=== PATIENT | female | born 1990 | race Caucasian/White ===

== ENCOUNTER → 2018-02-11 | Outpatient (CLI) | payer OTHER | END | disposition home or self-care (01) | LOC: C.LAB1850 08:19 | PROVIDERS: ATTEND Physician Assistant | DX: Z00.00 Encounter for general adult medical examination without abnormal findings (principal) ==

== ENCOUNTER 2019-03-22 05:10 | Inpatient (IN) ==
[2019-03-22] MEDS ORDERED: OXYTOCIN 30 UNITS/500 ML BAG IV PRN ×3 (06:47→18:50)
--- NOTE | 2019-03-22 06:54 | History & Physical Report ---
Date of Service March 22, 2019 Assessment & Plan (1) Supervision of normal first : Spontaneous labor. Admit to L&D, IV fluids, EFM/toco. Labs. Patient plans for epidural. OK to get up and move prior to epidural. Clear liquids only. Anticipate . History of Present Illness Chief Complaint: spontaneous labor Primary Care Provider: NO PCP 28yo @ 38 5/7 presents with contractions every few minutes and leaking of clear fluid. Scant vaginal bleeding. + movement. complicated by cardiac echogenic focus. Panorama was low risk. She believes she started leaking fluid around 3am today. She states she was checked in the office last and was 1-2cm dilated. 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 Beliefs That Will Affect Care: None marital status: Current Living Situation: Spouse Other Information That Helps Us Care for You: No Feels Safe at Home: Yes Safety Concerns: Feels Safe At This Time Smoking Status: Never smoker Hx Alcohol Use: No Hx Substance Use: No Review of Systems All systems reviewed & are unremarkable except as noted in HPI & below Physical Exam Physical Exam: Gen: AAOx3 NAD CV: RRR S1S2 L: CTAB Abd: soft, gravid, NTTP Ext: no edema Sterile spec exam: +pooling, +valsalva, +nitrizine, +ferning SVE: 3/80/-1 FHT Cat 1 [place] Q 2-3 min Results & Data Vital Signs (Past 12 Hours) Vital Signs Temp Pulse Resp BP 03/22/19 05:28 36.7 C 18 03/22/19 05:21 77 126/84
[2019-03-22 07:15] LABS: Hematocrit (blood only) 34.1 % (37-47); Hemoglobin 11.8 g/dL (12.0-16.0); Mean Corpuscular Hemoglobin 30.6 pg (25-34); Mean Corpuscular Volume 88.6 fL (80-100); Mean Platelet Volume 12.3 fL (7.4-10.4); Platelet Count 179 K/uL (130-400); RDW Coefficient of Variation 12.9 % (11.5-14.5); RDW Standard Deviation 41.5 fL (36.4-46.3); Red Blood Count 3.85 M/uL (4.2-5.4); White Blood Count 12.87 K/uL (4.8-10.8)
[2019-03-22 07:23] LABS: Mean Corpuscular Hgb Conc 34.6 g/dL (32-36)
[2019-03-22] MEDS: LACTATED RINGER'S 1,000 ML IV PRN ×4 (07:56→16:53)
[2019-03-22] MEDS ORDERED: ePHEDrine sulfate 50 MG/ML AMP ONE (08:00)
[2019-03-22] MEDS ORDERED: BUPIVACAINE 0.25% 30 ML VIAL ONE ×2 (08:00→16:48)
[2019-03-22] MEDS ORDERED: fentaNYL 2MCG/ML ROPIV 1.25MG/ML 100 ML BAG EPI ONE (08:01)
[2019-03-22] MEDS ORDERED: fentaNYL citrate 100 MCG/2 ML VIAL ONE (08:01)
[2019-03-22] MEDS ORDERED: NALOXONE HCL 0.4 MG/1 ML VIAL/CARP IV PRN (08:27)
[2019-03-22] MEDS ORDERED: ONDANSETRON INJ 2 MG/ML 2 ML VIAL IV PRN (08:27)
[2019-03-22] MEDS ORDERED: ePHEDrine sulfate 50 MG/ML AMP IV PRN (08:27)
[2019-03-22] MEDS ORDERED: NALOXONE HCL 1 MG in SODIUM CHLORIDE 0.9% 1000ML 1,000 ML IV PRN (08:27)
[2019-03-22] MEDS ORDERED: DiphenhydrAMINE HCL 50 MG/ML VIAL IV PRN (08:27)
[2019-03-22] MEDS ORDERED: fentaNYL 2MCG/ML ROPIV 1.25MG/ML 100 ML BAG EPI PRN (08:27)
[2019-03-22] MEDS ORDERED: NALBUPHINE HCL INJ 10 MG/ML AMP IV PRN (08:27)
--- NOTE | 2019-03-22 08:30 | Anesthesiology Consultation ---
Date of Service March 22, 2019 Assessment & Plan Chart Review Chart Review: Patient NOT seen in Pre Admission Testing and Acceptable Risk for Labor Epidural Consults Requested none ASA ASA2 Proposed Anesthesia Anesthesia Type: Labor Epidural and CSE Risk / Benefits Reviewed With: PT / POA / Parent / Guardian, Accepts Plan and Informed Consent Obtained History Height/Weight Height: 5 ft 4 in Weight: 68.946 kg Allergies Allergy/AdvReac Type Severity Reaction Status Date / Time No Known Drug Allergies Allergy Verified 03/18/19 10:38 Medications Home Medications Medication Instructions Recorded Confirmed Last Taken 1 tab PO DAILY 02/08/19 03/22/19 03/21/19 vitamin,calcium,kuozmgih-kavi-mmstg acid tablet docusate sodium [Colace] 100 mg PO DAILY 03/22/19 03/22/19 03/21/19 ferrous sulfate [iron] 325 mg PO 3XWK 03/22/19 03/22/19 03/20/19 Active Medications Generic Name Dose Route Start Last Admin Trade Name Freq PRN Reason Stop Dose Admin Lactated Ringer's 1,000 mls @ 125 mls/hr 03/22/19 06:47 03/22/19 07:56 Lr IV 03/24/19 06:46 999 mls/hr .Q8H PRN Administration L&D Protocol Protocol NPO Date Last Intake of Fluids: 03/22/19 Time Last Intake of Fluids: 07:30 Date Last Intake of Solids: 03/21/19 Time Last Intake of Solids: 18:30 Past Medical History Medical History cardiac echogenic focus Abnormal chromosomal and genetic finding on screening mother History of kidney stones History of varicella Exercise / Class Metabolic Activity II 4-5 Yardwork/Stairs/Walk up hill Past Family History Family History Mother Hypertension Breast cancer Past Surgical History Surgical History S/P tonsillectomy S/P wisdom tooth extraction Past Anesthesia History No Hx of Anesthesia Complications and No Family Hx of Anesthesia Complications History of PONV No Hx of PONV and No Hx of Motion Sickness Social History Smoking Status: Never smoker Hx Alcohol Use: No Hx Substance Use: No substance use type: does not use Review of Systems no chest pain or sob Physical Exam Vital Signs Last Vital Signs Temp 36.4 C L 03/22/19 07:20 Pulse 78 03/22/19 08:26 Resp 16 03/22/19 07:20 BP 111/72 03/22/19 07:11 Pulse Ox 100 03/22/19 08:26 ENMT Mouth: no TMJ abnormality Thyromental Distance: > or= 3.5 Finger Breadths Mallampati Class: II Neck normal visual inspection Respiratory normal respiratory effort Auscultation: lungs clear to auscultation bilaterally Cardiovascular Rate/Rhythm: regular rate and regular rhythm Musculoskeletal Spine: normal cervical ROM Neurologic moves all extremities Psychiatric Orientation: alert and oriented x 3 Testing Laboratory Results 03/22/19 07:05
--- NOTE | 2019-03-22 08:51 | Labor Progress Brief Note ---
Date of Service March 22, 2019 Subjective Reason For Note: Routine Evaluation Late entry Pt aware i am assuming care. she is requesting epidural. she notes painful ctx. Assessment & Plan (1) Supervision of normal first : (2) 38 weeks gestation of : requests epidural, aware if ctx decrease, will add pit. no significant cx change. fhts categ 1 Physical Exam Constitutional: WD/WN, vitals as above Psychiatric: A+Ox3, euthymic affect Genitourinary: Manual OB Exam: + cervical dilation (3), + cervical effacement 90% and + station -2 OB Exam Monitor Tracing: + external FHT monitor used (140 mod variability, reactive), + external uterine monitor used (q2-3), + c ategory I and + normal FHT variability Results & Data Vital Signs (Past 12 Hours) Vital Signs Temp Pulse Resp BP Pulse Ox 03/22/19 08:47 69 121/82 03/22/19 08:46 73 99 03/22/19 08:45 67 126/87 03/22/19 08:43 67 123/80 03/22/19 08:41 77 95 03/22/19 08:36 68 100 03/22/19 08:35 84 93 03/22/19 08:31 69 100 03/22/19 08:26 78 100 03/22/19 08:25 74 93 03/22/19 08:21 67 100 03/22/19 08:16 73 99 03/22/19 08:11 66 98 03/22/19 08:06 87 100 03/22/19 08:05 71 93 03/22/19 08:01 78 97 03/22/19 07:56 69 95 03/22/19 07:20 97.5 F L 16 03/22/19 07:11 64 111/72 03/22/19 05:28 98.1 F 18 03/22/19 05:21 77 126/84
--- NOTE | 2019-03-22 13:16 | Labor Progress Brief Note ---
Date of Service March 22, 2019 Subjective Reason For Note: Routine Evaluation Patient is comfortable. no complaints. Assessment & Plan (1) 38 weeks gestation of : (2) Supervision of normal first : good cx change. fhts reassuring. categ 1. c/w pit. Physical Exam Constitutional: WD/WN, vitals as above Genitourinary: Manual OB Exam: + cervical dilation 6 cm, + cervical effacement 100% and + station 0 OB Exam Monitor Tracing: + external FHT monitor used (135 mod variability), + external uterine monitor used (q2-3), + category I and + normal FHT variability pit at 9 Results & Data Vital Signs (Past 12 Hours) Vital Signs Temp Pulse Resp BP Pulse Ox 03/22/19 13:14 78 89 L 03/22/19 13:11 80 98 03/22/19 13:06 72 99 03/22/19 13:04 68 124/83 03/22/19 13:01 70 97 03/22/19 12:56 71 98 03/22/19 12:51 79 99 03/22/19 12:48 76 132/86 03/22/19 12:46 77 98 03/22/19 12:42 81 94 03/22/19 12:41 80 98 03/22/19 12:36 73 98 03/22/19 12:33 68 124/78 03/22/19 12:31 75 100 03/22/19 12:26 67 98 03/22/19 12:21 66 98 03/22/19 12:18 66 115/76 03/22/19 12:16 61 98 03/22/19 12:11 67 98 03/22/19 12:06 65 98 03/22/19 12:03 64 111/75 03/22/19 12:01 72 98 03/22/19 11:56 68 98 03/22/19 11:51 62 98 03/22/19 11:48 66 109/76 03/22/19 11:46 73 98 03/22/19 11:41 78 98 03/22/19 11:36 93 H 98 03/22/19 11:32 85 104/67 03/22/19 11:31 74 97 03/22/19 11:26 79 97 03/22/19 11:21 76 98 03/22/19 11:19 18 03/22/19 11:18 68 103/70 03/22/19 11:16 76 98 03/22/19 11:11 75 98 03/22/19 11:06 73 97 03/22/19 11:03 68 100/64 03/22/19 11:01 71 97 03/22/19 10:56 67 98 03/22/19 10:52 99.0 F 20 03/22/19 10:51 72 98 03/22/19 10:47 72 103/68 03/22/19 10:46 71 99 03/22/19 10:41 75 98 03/22/19 10:36 73 99 03/22/19 10:33 73 107/67 03/22/19 10:31 71 99 03/22/19 10:26 66 99 03/22/19 10:21 86 99 03/22/19 10:18 68 106/69 03/22/19 10:16 70 99 03/22/19 10:11 74 99 03/22/19 10:06 71 99 03/22/19 10:03 70 120/75 03/22/19 10:01 68 99 03/22/19 09:56 70 100 03/22/19 09:51 77 99 03/22/19 09:48 64 109/71 03/22/19 09:46 64 99 03/22/19 09:41 64 99 03/22/19 09:36 64 100 03/22/19 09:32 66 18 110/76 03/22/19 09:31 65 99 03/22/19 09:26 69 99 03/22/19 09:21 65 98 03/22/19 09:17 67 108/70 03/22/19 09:16 67 99 03/22/19 09:15 69 110/71 03/22/19 09:13 69 18 107/68 03/22/19 09:11 68 108/68 98 03/22/19 09:09 69 108/66 03/22/19 09:07 69 109/64 03/22/19 09:06 70 98 03/22/19 09:05 71 18 110/68 03/22/19 09:03 71 109/68 03/22/19 09:01 98.1 F 75 16 110/69 98 03/22/19 09:00 98.1 F 18 03/22/19 08:59 75 111/72 03/22/19 08:58 18 03/22/19 08:57 71 113/72 03/22/19 08:56 74 98 03/22/19 08:55 73 18 114/71 03/22/19 08:53 78 18 114/76 03/22/19 08:51 80 115/78 98 03/22/19 08:49 71 18 113/80 03/22/19 08:47 69 121/82 03/22/19 08:46 73 99 03/22/19 08:45 67 126/87 03/22/19 08:43 67 123/80 03/22/19 08:41 77 95 03/22/19 08:36 68 100 03/22/19 08:35 84 93 03/22/19 08:31 69 100 03/22/19 08:26 78 100 03/22/19 08:25 74 93 03/22/19 08:21 67 100 03/22/19 08:16 73 99 03/22/19 08:11 66 98 03/22/19 08:06 87 100 03/22/19 08:05 71 93 03/22/19 08:01 78 97 03/22/19 07:56 69 95 03/22/19 07:20 97.5 F L 16 03/22/19 07:11 64 111/72 03/22/19 05:28 98.1 F 18 03/22/19 05:21 77 126/84
[2019-03-22] MEDS ORDERED: Nursing to Pharmacy Communication ONE (14:11)
--- NOTE | 2019-03-22 15:20 | Labor Progress Brief Note ---
Date of Service March 22, 2019 Subjective Reason For Note: Routine Evaluation comfortable. no complaints. Assessment & Plan (1) 38 weeks gestation of : good progress in labor, c/w pit. categ 1 fhts. begin 2nd stage soon. Physical Exam Constitutional: WD/WN, vitals as above Genitourinary: Manual OB Exam: + cervical dilation 9 cm, + cervical effacement 100% and + station (to +1) 0 OB Exam Monitor Tracing: + external FHT monitor used (135 mod variability, reactive. ), + external uterine monitor used (q2), + category I and + normal FHT variability pitocin Results & Data Vital Signs (Past 12 Hours) Vital Signs Temp Pulse Resp BP Pulse Ox 03/22/19 15:16 75 100 03/22/19 15:11 67 100 03/22/19 15:06 74 100 03/22/19 15:05 98.4 F 16 03/22/19 15:03 65 121/83 03/22/19 15:01 68 100 03/22/19 14:56 64 98 03/22/19 14:51 64 100 03/22/19 14:48 75 124/86 92 03/22/19 14:46 79 94 03/22/19 14:41 70 97 03/22/19 14:36 92 H 100 03/22/19 14:33 73 108/70 03/22/19 14:31 69 98 03/22/19 14:26 67 97 03/22/19 14:21 66 97 03/22/19 14:19 73 108/66 03/22/19 14:16 71 97 03/22/19 14:11 68 97 03/22/19 14:06 76 97 03/22/19 14:04 74 18 110/68 03/22/19 14:01 77 98 03/22/19 13:56 69 97 03/22/19 13:51 70 98 03/22/19 13:49 67 18 107/70 03/22/19 13:46 70 98 03/22/19 13:41 70 97 03/22/19 13:36 70 98 03/22/19 13:32 73 110/72 03/22/19 13:31 68 98 03/22/19 13:26 70 99 03/22/19 13:21 68 99 03/22/19 13:18 72 18 109/68 03/22/19 13:16 82 98 03/22/19 13:14 78 89 L 03/22/19 13:11 80 98 03/22/19 13:06 72 99 03/22/19 13:04 68 124/83 03/22/19 13:01 70 97 03/22/19 13:00 98.8 F 18 03/22/19 12:56 71 98 03/22/19 12:51 79 99 03/22/19 12:48 76 132/86 03/22/19 12:46 77 98 03/22/19 12:42 81 94 03/22/19 12:41 80 98 03/22/19 12:36 73 98 03/22/19 12:33 68 18 124/78 03/22/19 12:31 75 100 03/22/19 12:26 67 98 03/22/19 12:21 66 98 03/22/19 12:18 66 115/76 03/22/19 12:16 61 98 03/22/19 12:11 67 98 03/22/19 12:06 65 98 03/22/19 12:03 64 111/75 03/22/19 12:01 72 98 03/22/19 11:56 68 98 03/22/19 11:51 62 98 03/22/19 11:48 66 109/76 03/22/19 11:46 73 98 03/22/19 11:41 78 98 03/22/19 11:36 93 H 98 03/22/19 11:32 85 104/67 03/22/19 11:31 74 97 03/22/19 11:26 79 97 03/22/19 11:21 76 98 03/22/19 11:19 18 03/22/19 11:18 68 103/70 03/22/19 11:16 76 98 03/22/19 11:11 75 98 03/22/19 11:06 73 97 03/22/19 11:03 68 100/64 03/22/19 11:01 71 97 03/22/19 10:56 67 98 03/22/19 10:52 99.0 F 20 03/22/19 10:51 72 98 03/22/19 10:47 72 103/68 03/22/19 10:46 71 99 03/22/19 10:41 75 98 03/22/19 10:36 73 99 03/22/19 10:33 73 107/67 03/22/19 10:31 71 99 03/22/19 10:26 66 99 03/22/19 10:21 86 99 03/22/19 10:18 68 106/69 03/22/19 10:16 70 99 03/22/19 10:11 74 99 03/22/19 10:06 71 99 03/22/19 10:03 70 120/75 03/22/19 10:01 68 99 03/22/19 09:56 70 100 03/22/19 09:51 77 99 03/22/19 09:48 64 109/71 03/22/19 09:46 64 99 03/22/19 09:41 64 99 03/22/19 09:36 64 100 03/22/19 09:32 66 18 110/76 03/22/19 09:31 65 99 03/22/19 09:26 69 99 03/22/19 09:21 65 98 03/22/19 09:17 67 108/70 03/22/19 09:16 67 99 03/22/19 09:15 69 110/71 03/22/19 09:13 69 18 107/68 03/22/19 09:11 68 108/68 98 03/22/19 09:09 69 108/66 03/22/19 09:07 69 109/64 03/22/19 09:06 70 98 03/22/19 09:05 71 18 110/68 03/22/19 09:03 71 109/68 03/22/19 09:01 98.1 F 75 16 110/69 98 03/22/19 09:00 98.1 F 18 03/22/19 08:59 75 111/72 03/22/19 08:58 18 03/22/19 08:57 71 113/72 03/22/19 08:56 74 98 03/22/19 08:55 73 18 114/71 03/22/19 08:53 78 18 114/76 03/22/19 08:51 80 115/78 98 03/22/19 08:49 71 18 113/80 03/22/19 08:47 69 121/82 03/22/19 08:46 73 99 03/22/19 08:45 67 126/87 03/22/19 08:43 67 123/80 03/22/19 08:41 77 95 03/22/19 08:36 68 100 03/22/19 08:35 84 93 03/22/19 08:31 69 100 03/22/19 08:26 78 100 03/22/19 08:25 74 93 03/22/19 08:21 67 100 03/22/19 08:16 73 99 03/22/19 08:11 66 98 03/22/19 08:06 87 100 03/22/19 08:05 71 93 03/22/19 08:01 78 97 03/22/19 07:56 69 95 03/22/19 07:20 97.5 F L 16 03/22/19 07:11 64 111/72 03/22/19 05:28 98.1 F 18 03/22/19 05:21 77 126/84
--- NOTE | 2019-03-22 17:15 | Labor Progress Brief Note ---
Date of Service March 22, 2019 Subjective Reason For Note: Routine Evaluation does have pressure to push Assessment & Plan (1) 38 weeks gestation of : (2) SROM (spontaneous rupture of membranes): begin 2nd stage. fhts categ 1. Physical Exam Constitutional: WD/WN, vitals as above Genitourinary: Manual OB Exam: + cervical dilation 10 cm, + cervical effacement 100% and + station + 2 OB Exam Monitor Tracing: + external FHT monitor used (130 mod variability), + external uterine monitor used (q2), + c ategory I and + normal FHT variability Results & Data Vital Signs (Past 12 Hours) Vital Signs Temp Pulse Resp BP Pulse Ox 03/22/19 17:12 98 H 99 03/22/19 17:07 78 100 03/22/19 17:03 71 112/63 88 L 03/22/19 17:02 78 99 03/22/19 16:57 73 100 03/22/19 16:54 81 88 L 03/22/19 16:52 89 100 03/22/19 16:49 76 106/56 L 03/22/19 16:47 89 97 03/22/19 16:44 99.5 F 22 03/22/19 16:43 81 88 L 03/22/19 16:42 80 100 03/22/19 16:37 75 99 03/22/19 16:33 75 105/66 03/22/19 16:32 79 84 L 03/22/19 16:31 73 99 03/22/19 16:26 77 99 03/22/19 16:21 64 100 03/22/19 16:19 62 130/69 03/22/19 16:17 76 87 L 03/22/19 16:16 69 97 03/22/19 16:11 96 H 99 03/22/19 16:10 101 H 94 03/22/19 16:06 93 H 100 03/22/19 16:04 79 108/69 03/22/19 16:01 76 98 03/22/19 15:56 73 100 03/22/19 15:51 73 100 03/22/19 15:48 68 18 119/78 03/22/19 15:46 83 97 03/22/19 15:41 76 100 03/22/19 15:38 78 90 03/22/19 15:36 74 100 03/22/19 15:32 77 113/77 03/22/19 15:31 69 99 03/22/19 15:29 72 93 03/22/19 15:26 69 100 03/22/19 15:24 72 91 03/22/19 15:21 72 97 03/22/19 15:18 69 119/81 91 03/22/19 15:16 75 100 03/22/19 15:11 67 100 03/22/19 15:06 74 100 03/22/19 15:05 98.4 F 16 03/22/19 15:03 98.1 F 65 18 121/83 03/22/19 15:01 68 100 03/22/19 14:56 64 98 03/22/19 14:51 64 100 03/22/19 14:48 75 124/86 92 03/22/19 14:46 79 94 03/22/19 14:41 70 97 03/22/19 14:36 92 H 100 03/22/19 14:33 73 108/70 03/22/19 14:31 69 98 03/22/19 14:26 67 97 03/22/19 14:21 66 97 03/22/19 14:19 73 108/66 03/22/19 14:16 71 97 03/22/19 14:11 68 97 03/22/19 14:06 76 97 03/22/19 14:04 74 18 110/68 03/22/19 14:01 77 98 03/22/19 13:56 69 97 03/22/19 13:51 70 98 03/22/19 13:49 67 18 107/70 03/22/19 13:46 70 98 03/22/19 13:41 70 97 03/22/19 13:36 70 98 03/22/19 13:32 73 110/72 03/22/19 13:31 68 98 03/22/19 13:26 70 99 03/22/19 13:21 68 99 03/22/19 13:18 72 18 109/68 03/22/19 13:16 82 98 03/22/19 13:14 78 89 L 03/22/19 13:11 80 98 03/22/19 13:06 72 99 03/22/19 13:04 68 124/83 03/22/19 13:01 70 97 03/22/19 13:00 98.8 F 18 03/22/19 12:56 71 98 03/22/19 12:51 79 99 03/22/19 12:48 76 132/86 03/22/19 12:46 77 98 03/22/19 12:42 81 94 03/22/19 12:41 80 98 03/22/19 12:36 73 98 03/22/19 12:33 68 18 124/78 03/22/19 12:31 75 100 03/22/19 12:26 67 98 03/22/19 12:21 66 98 03/22/19 12:18 66 115/76 03/22/19 12:16 61 98 03/22/19 12:11 67 98 03/22/19 12:06 65 98 03/22/19 12:03 64 111/75 03/22/19 12:01 72 98 03/22/19 11:56 68 98 03/22/19 11:51 62 98 03/22/19 11:48 66 109/76 03/22/19 11:46 73 98 03/22/19 11:41 78 98 03/22/19 11:36 93 H 98 03/22/19 11:32 85 104/67 03/22/19 11:31 74 97 03/22/19 11:26 79 97 03/22/19 11:21 76 98 03/22/19 11:19 18 03/22/19 11:18 68 103/70 03/22/19 11:16 76 98 03/22/19 11:11 75 98 03/22/19 11:06 73 97 03/22/19 11:03 68 100/64 03/22/19 11:01 71 97 03/22/19 10:56 67 98 03/22/19 10:52 99.0 F 20 03/22/19 10:51 72 98 03/22/19 10:47 72 103/68 03/22/19 10:46 71 99 03/22/19 10:41 75 98 03/22/19 10:36 73 99 03/22/19 10:33 73 107/67 03/22/19 10:31 71 99 03/22/19 10:26 66 99 03/22/19 10:21 86 99 03/22/19 10:18 68 106/69 03/22/19 10:16 70 99 03/22/19 10:11 74 99 03/22/19 10:06 71 99 03/22/19 10:03 70 120/75 03/22/19 10:01 68 99 03/22/19 09:56 70 100 03/22/19 09:51 77 99 03/22/19 09:48 64 109/71 03/22/19 09:46 64 99 03/22/19 09:41 64 99 03/22/19 09:36 64 100 03/22/19 09:32 66 18 110/76 03/22/19 09:31 65 99 03/22/19 09:26 69 99 03/22/19 09:21 65 98 03/22/19 09:17 67 108/70 03/22/19 09:16 67 99 03/22/19 09:15 69 110/71 03/22/19 09:13 69 18 107/68 03/22/19 09:11 68 108/68 98 03/22/19 09:09 69 108/66 03/22/19 09:07 69 109/64 03/22/19 09:06 70 98 03/22/19 09:05 71 18 110/68 03/22/19 09:03 71 109/68 03/22/19 09:01 98.1 F 75 16 110/69 98 03/22/19 09:00 98.1 F 18 03/22/19 08:59 75 111/72 03/22/19 08:58 18 03/22/19 08:57 71 113/72 03/22/19 08:56 74 98 03/22/19 08:55 73 18 114/71 03/22/19 08:53 78 18 114/76 03/22/19 08:51 80 115/78 98 03/22/19 08:49 71 18 113/80 03/22/19 08:47 69 121/82 03/22/19 08:46 73 99 03/22/19 08:45 67 126/87 03/22/19 08:43 67 123/80 03/22/19 08:41 77 95 03/22/19 08:36 68 100 03/22/19 08:35 84 93 03/22/19 08:31 69 100 03/22/19 08:26 78 100 03/22/19 08:25 74 93 03/22/19 08:21 67 100 03/22/19 08:16 73 99 03/22/19 08:11 66 98 03/22/19 08:06 87 100 03/22/19 08:05 71 93 03/22/19 08:01 78 97 03/22/19 07:56 69 95 03/22/19 07:20 97.5 F L 16 03/22/19 07:11 64 111/72 03/22/19 05:28 98.1 F 18 03/22/19 05:21 77 126/84
[2019-03-22] MEDS ORDERED: SUPERCREAM 0.870% 15 GM JAR EXT PRN (18:12)
[2019-03-22] MEDS ORDERED: OXYCODONE/ACETAMINOPHEN 5mg/325mg TAB PO PRN (18:12)
[2019-03-22] MEDS ORDERED: ACETAMINOPHEN 325 MG TAB PO PRN (18:12)
--- NOTE | 2019-03-22 18:14 | Delivery Summary ---
Vaginal Delivery Summary Date of Service March 22, 2019 The patient dilated to complete and pushed to deliver a viable male Apga rs 8 and 9 via over small 2nd degree perineal laceration. Mouth and nose bulb suctioned at perineum. Loose nuchal cord reduced with ease. Shoulders and body delivered with ease. Infant was vigorous and crying at . Cord clamped at 30 seconds of life and to maternal abdomen where the cord was then doubly clamped and cut. Placenta delivered spontaneously and intact, three- vessel cord. Hemostasis achieved with dilute pitocin and uterine massage and drainage of the bladder for approximately 200 cc under sterile conditions. Cervix and sulci intact. EBL 300 cc. Mother and baby stable recovery.
[2019-03-22] MEDS ORDERED: OXYTOCIN 20 UNITS in LACTATED RINGER'S 1,000 ML IV SCH (18:15)
[2019-03-22] MEDS ORDERED: BENZOCAINE 20% AER SPR 82.5 GM CAN EXT PRN (18:50)
[2019-03-22] MEDS ORDERED: DIPHTHERIA/TETANUS/PERTUSSIS 0.5 ML SYR/VIAL IM ONE (18:50)
[2019-03-22] MEDS ORDERED: HYDROCORTISONE ACETATE 25 MG SUPP PR PRN (18:50)
--- NOTE | 2019-03-22 19:30 | Anesthesia Procedure Note ---
Date of Service March 22, 2019 Anesthesia Post Epidural Note Vital Signs Vital Signs: Temp Pulse Resp BP Pulse Ox 37.6 C H 72 18 116/70 99 03/22/19 19:10 03/22/19 19:17 03/22/19 19:10 03/22/19 19:17 03/22/19 18:07 Notes Mental Status: alert / awake / arousable and participated in evaluation Nausea / Vomiting: adequately controlled Pain: adequately controlled Airway Patency, RR, SpO2: stable & adequate BP & HR: stable & adequate Hydration State: stable & adequate Neuraxial Anesthesia: was administered and sensory block is resolving Anesthetic Complications: no major complications apparent and Pt Satisfied with anesthetic care Epidural: Removed without complications and With tip intact
[2019-03-22] MEDS: IBUPROFEN 600 MG TAB PO PRN (19:34)
[2019-03-23] MEDS: IBUPROFEN 600 MG TAB PO PRN ×3 (06:16→20:10)
--- NOTE | 2019-03-23 06:52 | Obstetrical Progress Note ---
Date of Service <Yoseph Khalil MD - Last Filed: 03/23/19 06:54> March 23, 2019 Assessment & Plan <Yoseph Khalil MD - Last Filed: 03/23/19 06:54> (1) SROM (spontaneous rupture of membranes): on 03/22 PPD #1 -Feels well today, eating well, voiding well, ambulating well -pain well controlled -After discharge will have 6 week follow-up Subjective <Yoseph Khalil MD - Last Filed: 03/23/19 06:54> Ms. Dyer is a 28y/o female ; PPD #1 following spontaneous vaginal delivery at 38 5/7 weeks; doing well this morning; some continued abdominal cramping/pain; urinating well, and passing gas but no bowel movements at this point; tolerated meals overnight; and able to ambulate to bathroom; some persistent spotting with intermittent improvement this morning. Review of Systems Constitutional: denies fever; chills; sweats; headache Respiratory: denies shortness of breath, difficulty breathing Cardiac: denies chest pain; palpitations; chest pressure Breast: denies breast pain : denies dysuria Physical Exam <Yoseph Khalil MD - Last Filed: 03/23/19 06:54> General: alert; oriented; no acute distress Cardiac: RRR; no m/g/r Respiratory: CTAB a/p; no wheezes/rales/rhonchi; no increased work of breathing; symmetrical chest rise; no respiratory distress Abdomen: soft; NT/ND; bowel sounds positive Uterus: uterine fundus firm; palpable 2cm below umbilicus Lower extrem: no lower extremity edema or swelling; no deep calf pain; Krish's sign negative b/l Results & Data <Yoseph Khalil MD - Last Filed: 03/23/19 06:54> Vital Signs (Past 12 Hours) Vital Signs Temp Pulse Pulse Resp BP BP 03/23/19 04:00 36.7 C 68 18 109/74 03/23/19 00:10 36.9 C 66 17 100/59 L 03/22/19 21:00 36.8 C 66 20 118/78 03/22/19 20:25 36.8 C 18 03/22/19 20:24 68 115/71 03/22/19 20:09 73 122/75 03/22/19 20:02 69 124/74 03/22/19 19:55 18 03/22/19 19:51 75 128/72 03/22/19 19:32 70 119/76 03/22/19 19:25 18 03/22/19 19:17 72 116/70 03/22/19 19:10 37.6 C H 18 03/22/19 19:06 86 110/73 03/22/19 19:02 75 112/74 Laboratory Results 03/22/19 Range/Units 07:05 WBC 12.87 H (4.8-10.8) K/uL RBC 3.85 L (4.2-5.4) M/uL Hgb 11.8 L (12.0-16.0) g/dL Hct 34.1 L (37-47) % MCV 88.6 (80-100) fL MCH 30.6 (25-34) pg MCHC 34.6 (32-36) g/dL RDW Std Deviation 41.5 (36.4-46.3) fL RDW Coeff of Osmin 12.9 (11.5-14.5) % Plt Count 179 (130-400) K/uL MPV 12.3 H (7.4-10.4) fL Medications Administered Current Inpatient Medications Acetaminophen (Tylenol) 650 mg PO Q6H PRN PRN Reason: Pain/BAÑUELOS/Fever Stop: 04/21/19 18:11 Benzocaine (Dermoplast Pain Relieving [place]) 1 appln EXT PRN PRN PRN Reason: Perineal Discomfort Stop: 04/21/19 18:49 Last Admin: 03/23/19 05:23 Dose: 1 appln Documented by: Cocaine HCl (Supercream 0.870%) 1 gm EXT BID PRN PRN Reason: Hemorrhoidal Inflammation Stop: 04/05/19 18:11 Docusate Sodium (Colace) 100 mg PO DAILY@08,21 [facility] Stop: 04/21/19 20:59 Hydrocortisone (Anusol Hc) 25 mg OK BID PRN PRN Reason: Hemorrhoidal Inflammation Stop: 04/21/19 18:49 Oxytocin 20 units/ Lactated (Ringer's) 1,002 mls @ 125 mls/hr IV .Q8H1M SHWETA Stop: 04/21/19 18:14 Last Infusion: 03/23/19 03:58 Dose: Infused Documented by: Oxytocin (Pitocin) 30 units in 500 mls @ 333.333 mls/hr IV .Q1H30M PRN; Protocol PRN Reason: Bleeding Control Stop: 04/21/19 18:49 Ibuprofen (Motrin) 600 mg PO Q4H PRN PRN Reason: Pain/BAÑUELOS/Cramping/Fever Stop: 04/21/19 18:11 Last Admin: 03/23/19 06:16 Dose: 600 mg Documented by: Oxycodone/Acetaminophen (Percocet 5mg/325mg) 1 tab PO Q4H PRN PRN Reason: Pain not relieved by... Stop: 04/05/19 18:11 <Felicity Sood MD, FACOG - Last Filed: 03/23/19 07:45> Co-Signing Physician Notes Resident Physician Supervision Note: I was present with Dr. Khalil during the history and exam. I discussed the case with the resident and agree with the findings and plan as documented in the note. Any exceptions or clarifications are listed here: doing well, breast feeding, routine care. rh pos, ri. ff 2down. Documented By: Felicity Sood MD, FACOG Resident Activity Tracking <Yoseph Khalil MD - Last Filed: 03/23/19 06:54> Resident Involvement: Resident Care Provided Care Provided: OB Delivery
[2019-03-23] MEDS: DOCUSATE SODIUM 100 MG CAP PO SCH ×2 (08:49→20:10)
--- NOTE | 2019-03-24 06:17 | Obstetrical Progress Note ---
Date of Service <Yoseph Khalil MD - Last Filed: 03/24/19 06:37> March 24, 2019 Assessment & Plan <Yoseph Khalil MD - Last Filed: 03/24/19 06:37> (1) SROM (spontaneous rupture of membranes): on 03/22 PPD #2 -Feels well today, eating well, voiding well, ambulating well -pain well controlled -After discharge will have 6 week follow-up Subjective <Yoseph Khalil MD - Last Filed: 03/24/19 06:37> Ms Dyer is a 28y/o female ; PPD #2 following spontaneous vaginal delivery at 38 5/7weeks; doing well this morning; no abdominal cramping/pain; voiding well, passing gas but no bowel movements at this point; tolerating meals overnight; and able to ambulate some; some persistent spotting with intermittent improvement this morning. Review of Systems Constitutional: denies fever; chills; sweats; headache Respiratory: denies shortness of breath, difficulty breathing Cardiac: denies chest pain; palpitations; chest pressure Breast: denies breast pain : denies dysuria Physical Exam <Yoseph Khalil MD - Last Filed: 03/24/19 06:37> General: alert; oriented; no acute distress Cardiac: RRR; no m/g/r Respiratory: CTAB a/p; no wheezes/rales/rhonchi; no increased work of breathing; symmetrical chest rise; no respiratory distress Abdomen: soft; NT/ND; bowel sounds positive Uterus: uterine fundus firm; palpable 3cm below umbilicus Lower extrem: no lower extremity edema or swelling; no deep calf pain; Krish's sign negative b/l Results & Data <Yoseph Khalil MD - Last Filed: 03/24/19 06:37> Vital Signs (Past 12 Hours) Vital Signs Temp Pulse Resp BP 03/23/19 23:20 36.7 C 64 18 108/70 03/23/19 19:20 36.6 C 74 18 116/78 Medications Administered Current Inpatient Medications Acetaminophen (Tylenol) 650 mg PO Q6H PRN PRN Reason: Pain/BAÑUELOS/Fever Stop: 04/21/19 18:11 Benzocaine (Dermoplast Pain Relieving [place]) 1 appln EXT PRN PRN PRN Reason: Perineal Discomfort Stop: 04/21/19 18:49 Last Admin: 03/23/19 05:23 Dose: 1 appln Documented by: Cocaine HCl (Supercream 0.870%) 1 gm EXT BID PRN PRN Reason: Hemorrhoidal Inflammation Stop: 04/05/19 18:11 Docusate Sodium (Colace) 100 mg PO DAILY@08,21 [facility] Stop: 04/21/19 20:59 Last Admin: 03/23/19 20:10 Dose: 100 mg Documented by: Hydrocortisone (Anusol Hc) 25 mg WI BID PRN PRN Reason: Hemorrhoidal Inflammation Stop: 04/21/19 18:49 Oxytocin 20 units/ Lactated (Ringer's) 1,002 mls @ 125 mls/hr IV .Q8H1M SHWETA Stop: 04/21/19 18:14 Last Infusion: 03/23/19 03:58 Dose: Infused Documented by: Oxytocin (Pitocin) 30 units in 500 mls @ 333.333 mls/hr IV .Q1H30M PRN; Protocol PRN Reason: Bleeding Control Stop: 04/21/19 18:49 Ibuprofen (Motrin) 600 mg PO Q4H PRN PRN Reason: Pain/BAÑUELOS/Cramping/Fever Stop: 04/21/19 18:11 Last Admin: 03/23/19 20:10 Dose: 600 mg Documented by: Oxycodone/Acetaminophen (Percocet 5mg/325mg) 1 tab PO Q4H PRN PRN Reason: Pain not relieved by... Stop: 04/05/19 18:11 <Tammy Orr MD, FACOG - Last Filed: 03/24/19 07:11> Co-Signing Physician Notes Resident Physician Supervision Note: I interviewed and examined the patient. Discussed with Dr. Khalil and agree with findings and plan as documented in the note. Any exceptions or clarifications are listed here: [None] Documented By: Tammy Orr MD, FACOG Resident Activity Tracking <Yoseph Khalil MD - Last Filed: 03/24/19 06:37> Resident Involvement: Resident Care Provided Care Provided: OB Delivery
[2019-03-24] MEDS: DOCUSATE SODIUM 100 MG CAP PO SCH ×2 (08:34→08:35)
[2019-03-24] MEDS: IBUPROFEN 600 MG TAB PO PRN (13:53)
== END 2019-03-24 15:45 | disposition home or self-care (01) | DRG 807 ==
LOC: OPB 05:10 → 4S1 05:14 → 4S2 20:39

== ENCOUNTER 2021-01-30 13:18 | Inpatient (IN) ==
[2021-01-30] MEDS ORDERED: OXYTOCIN 30 UNITS/500 ML BAG IV PRN ×2 (13:21→21:02)
--- NOTE | 2021-01-30 13:32 | History & Physical Report ---
Date of Service January 30, 2021 Assessment & Plan (1) : Plan: Stable, doing well -admit to L&D -NPO except sips and chips -IVs (LR, pitocin, epidural) as needed -FHTs -labs (CBC) -Rh+, RI, GBS- -prepare for (2) Encounter for anatomic survey: (3) Supervision of normal intrauterine in multigravida: History of Present Illness Primary Care Provider: NO PCP Marta is a 30 y/o female currently at 39.4 WGA with an TRENT 02/02/21 as determined by LMP who is here for progression of labor. Her was uncomplicated. + contractions; + movement; - fluid loss; - bloody show Had regular appointments with OB. Labs: Blood type: O+ Antibody screen: Negative H.4 Hct: 33.5 WBC: Plt: 281 Rubella: immune VDRL/RPR: nonreactive Gonorrhea: negative Chlamydia: negative HIV: negative HbSAg: negative GBS: negative COVID-19: pending Other screens: cff-DNA: declined CF: declined SMA: declined Allergies Allergy/AdvReac Type Severity Reaction Status Date / Time No Known Drug Allergies Allergy Unknown Verified 01/30/21 13:44 Home Medications Medication Instructions Recorded Confirmed Type prenat.vits,regan,doo-qrzy-qeyve 1 tab PO DAILY 02/08/19 01/30/21 History docusate sodium [Dulcolax Stool PO 07/21/20 01/30/21 History Softener (dss)] breast pump #1 ea 11/09/20 01/30/21 Rx Patient History Medical History (Updated 01/30/21 @ 13:55 by Axel Lawrence MD) History of kidney stones History of varicella Surgical History S/P tonsillectomy S/P wisdom tooth extraction Family History Mother Hypertension Breast cancer Social History (Updated 06/15/20 @ 09:47 by Christina Prieto) Smoking Status: Never smoker Hx Alcohol Use: No Hx Substance Use: No Preferred Language: Russian Communication Ability: Effective 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 No acute distress. Cardiac: Regular rate and rhythm, no murmurs/rubs/gallops. Respiratory: Clear to auscultation bilaterally a/p, no wheezes/rales/rhonchi. No increased work of breathing. Symmetrical chest rise. No respiratory distress. Pelvic: Dilation 5-6cm; Effacement 90; Station -[address] Trevino Lower Extremities: No lower extremity edema or swelling. No deep calf pain. Krish's negative bilaterally Baseline: 140-150 Variability: moderate Accelerations: yes Decelerations: yes Constitutional: WD/WN, vitals as above Code Status & VTE Plan VTE Prophylaxis Plan VTE Prophylaxis will be ordered: Yes Supervising Physician Co-Signing Physician Notes Resident Physician Supervision Note: I interviewed and examined the patient. Discussed with Dr. Lawrence and agree with findings and plan as documented in the note. Any exceptions or clarifications are listed here: 30 y/o at 39 4/7 wga presenting from clinic for labor check where she was 6cm. +FM; denies LOF, VB. Preg uncomplicated. SVE unchanged from clinic, pt not yet needing epidural. Cat 2 with intermittent variables but good variability in b/w, ctx q5. Will admit, epidural PRN. Can AROM with next check. GBS neg Documented By: Lubna Trevino MD Resident Activity Tracking Resident Involvement: Resident Care Provided Care Provided: OB Delivery
[2021-01-30] MEDS: LACTATED RINGER'S 1,000 ML IV PRN ×2 (13:45→15:11)
[2021-01-30 14:16] LABS: Hematocrit (blood only) 33.3 % (37-47); Hemoglobin 11.4 g/dL (12.0-16.0); Mean Corpuscular Hemoglobin 30.5 pg (25-34); Mean Corpuscular Hgb Conc 34.2 g/dL (32-36); Mean Platelet Volume 11.4 fL (7.4-10.4); Platelet Count 329 K/uL (130-400); RDW Coefficient of Variation 12.7 % (11.5-14.5); RDW Standard Deviation 40.8 fL (36.4-46.3); Red Blood Count 3.74 M/uL (4.2-5.4); White Blood Count 15.93 K/uL (4.8-10.8)
[2021-01-30] MEDS ORDERED: ePHEDrine sulfate 50 MG/ML AMP ONE (14:34)
[2021-01-30] MEDS ORDERED: BUPIVACAINE 0.25% 30 ML VIAL ONE (14:34)
[2021-01-30] MEDS ORDERED: SODIUM CHLORIDE 0.9% INJ 10 ML VIAL ONE (14:34)
[2021-01-30] MEDS ORDERED: fentaNYL citrate 100 MCG/2 ML VIAL ONE (14:34)
[2021-01-30] MEDS ORDERED: fentaNYL 2MCG/ML ROPIVACAINE 1.25MG/ML 100 ML BAG EPI ONE (14:34)
[2021-01-30] MEDS ORDERED: NALOXONE HCL 0.4 MG/1 ML VIAL/CARP IV PRN (14:53)
[2021-01-30] MEDS ORDERED: fentaNYL 2MCG/ML ROPIVACAINE 1.25MG/ML 100 ML BAG EPI PRN (14:53)
[2021-01-30] MEDS ORDERED: ePHEDrine sulfate 50 MG/ML AMP IV PRN (14:53)
[2021-01-30] MEDS ORDERED: NALOXONE HCL 1 MG in SODIUM CHLORIDE 0.9% 1000ML 1,000 ML IV PRN (14:53)
[2021-01-30] MEDS ORDERED: diphenhydrAMINE 50 MG/ML VIAL IV PRN (14:53)
[2021-01-30] MEDS ORDERED: ONDANSETRON INJ 2 MG/ML 2 ML VIAL IV PRN (14:53)
[2021-01-30] MEDS ORDERED: NALBUPHINE HCL INJ 10 MG/ML AMP IV PRN (14:53)
--- NOTE | 2021-01-30 15:03 | Anesthesiology Consultation ---
Date of Service January 30, 2021 Assessment & Plan Chart Review Chart Review: Patient NOT seen in Pre Admission Testing and Acceptable Risk for Labor Epidural Consults Requested none ASA ASA2 Proposed Anesthesia Anesthesia Type: Labor Epidural and CSE Risk / Benefits Reviewed With: PT / POA / Parent / Guardian, Accepts Plan and Informed Consent Obtained History Height/Weight Height: 5 ft 4 in Weight: 69.763 kg Allergies Allergy/AdvReac Type Severity Reaction Status Date / Time No Known Drug Allergies Allergy Unknown Verified 01/30/21 13:44 Medications Home Medications Medication Instructions Recorded Confirmed Last Taken prenat.vits,regan,aou-pwco-[id number] 1 tab PO DAILY 02/08/19 01/30/21 03/21/19 docusate sodium [Dulcolax Stool PO 07/21/20 01/30/21 Unknown Softener (dss)] breast pump #1 ea 11/09/20 01/30/21 Unknown Active Medications Generic Name Dose Route Start Last Admin Trade Name Freq PRN Reason Stop Dose Admin Lactated Ringer's 1,000 mls @ 125 mls/hr 01/30/21 13:21 01/30/21 13:45 Lr IV 02/01/21 13:20 999 mls/hr .Q8H PRN Administration L&D Protocol Protocol NPO Date Last Intake of Fluids: 01/30/21 Time Last Intake of Fluids: 09:30 Date Last Intake of Solids: 01/30/21 Time Last Intake of Solids: 07:00 Past Medical History Medical History (Updated 01/30/21 @ 13:55 by Axel Lawrence MD) History of kidney stones History of varicella Exercise / Class Metabolic Activity II 4-5 Yardwork/Stairs/Walk up hill Past Family History Family History Mother Hypertension Breast cancer Past Surgical History Surgical History S/P tonsillectomy S/P wisdom tooth extraction Past Anesthesia History No Hx of Anesthesia Complications and No Family Hx of Anesthesia Complications History of PONV No Hx of PONV and No Hx of Motion Sickness Social History Smoking Status: Never smoker Hx Alcohol Use: No Hx Substance Use: No substance use type: does not use Physical Exam Vital Signs Last Vital Signs Resp 18 01/30/21 13:46 T 36.7, SpO2 100, HR 77, BP 121/79 Testing Laboratory Results 01/30/21 13:52
--- NOTE | 2021-01-30 16:27 | Labor Progress Brief Note ---
Date of Service January 30, 2021 Subjective Comfortable w/ epidural Assessment & Plan (1) : Plan: 30 y/o at 39 4/7 wga presenting in labor VSS Fetus cat 1 Labor - now s/p arom, progressed from prior exam GBS neg Epidural in place Admission and Anticipated Discharge Date Admission Date: January 30, 2021 Physical Exam Genitourinary: Manual OB Exam: + cervical dilation 6 cm, + cervical effacement 90%, + station 0 and + amniotic fluid (AROM clear) OB Exam Monitor Tracing: + external FHT monitor used, + external uterine monitor used (q4) and + category I (125/mod/+accel/-decel) Results & Data ([facility]) Vital Signs (Past 12 Hours) Vital Signs Temp Pulse Resp BP Pulse Ox 01/30/21 16:20 94 H 114/73 98 01/30/21 16:16 73 113/72 01/30/21 16:15 75 98 01/30/21 16:10 76 108/75 97 01/30/21 16:05 79 109/73 98 01/30/21 16:00 78 110/71 99 01/30/21 15:56 74 121/74 01/30/21 15:55 73 98 01/30/21 15:50 76 111/75 98 01/30/21 15:45 80 115/76 98 01/30/21 15:40 85 112/74 98 01/30/21 15:35 79 113/74 98 01/30/21 15:30 89 18 98 01/30/21 15:29 93 H 115/76 01/30/21 15:26 98 H 108/77 01/30/21 15:25 88 98 01/30/21 15:23 89 110/71 01/30/21 15:20 88 112/73 98 01/30/21 15:17 74 117/80 01/30/21 15:15 72 98 01/30/21 15:14 76 121/77 01/30/21 15:11 68 123/83 01/30/21 15:10 76 100 01/30/21 15:05 87 100 01/30/21 14:56 88 110/72 99 01/30/21 13:46 18 01/30/21 13:36 98.1 F 18 121/79 Coding Level of Care Code None Diagnoses Z34.90
[2021-01-30 20:44] LABS: Base Excess Cord Venous Blood -11.9 mEq/L (-7.7-1.9); Cord Venous Blood HCO3 18 mmol/L (18.4-26.8); Cord Venous Blood PCO2 57 mmHg (30.4-57.2); Cord Venous Blood PO2 28 mmHg (14.1-43.3); Cord Venous Blood pH 7.12 (7.20-7.44)
[2021-01-30 20:51] LABS: O2 Saturation Cord Venous Bld < 60.0 % (<68)
--- NOTE | 2021-01-30 20:51 | Delivery Summary ---
Vaginal Delivery Summary Date of Service January 30, 2021 Vaginal Delivery Summary [facility] PREOPERATIVE DIAGNOSIS: 1. Single intrauterine at 39 4/7 wga 2. Labor POSTOPERATIVE DIAGNOSIS: 1. Single intrauterine at 39 4/7 wga 2. Labor 3. Delivered PROCEDURE: 1. Normal spontaneous vaginal delivery. SURGEON: Lubna Trevino MD ANESTHESIA: Epidural. ESTIMATED BLOOD LOSS: 300 mL FLUIDS: Continuous LR. URINE OUTPUT: None. COMPLICATIONS: None. CONDITION: Stable. INDICATIONS: 30 y/o at 39 4/7 wga presented to labor and delivery in active labor. She was seen in clinic today as acute visit due to contractions and found to be 6cm. She was admitted and subsequently received an epidural. She underwent artificial rupture of membranes. She then progressed to complete and desired to push. FINDINGS: A viable male infant with Apgars of 3 and 9 at 1 and 5 minutes respectively. SPECIMEN: Cord blood, cord gases OPERATIVE REPORT: The patient progressed to 10 cm, 100% effaced and +2 station, pushed over intact perineum with anesthesia to deliver a viable male , Apgars as above. Head of delivered in JEREMIE position. Tight nuchal cord was present and delivered through. Body and shoulders were delivered without difficulty. was not very vigorous despite stimulation and so delayed cord clamping was deferred. Cord was clamped and cut and baby was handed off to awaiting nursery staff. Cord segment and blood was obtained. Placenta delivered spontaneously intact with 3-vessel cord. IV oxytocin and fundal massage were given for excellent hemostasis. Vagina, cervix, perineum, and placenta were inspected. A small vaginal laceration just inside the introitus was noted and repaired in the usual fashion using 3-0 Vicryl. There was excellent hemostasis. Sponge and needle counts correct x2. No sponges were left behind. Mother and stable in immediate period. [facility] Vaginal Delivery Charge Vaginal Delivery Codes: 45704 global code for the antepartum, delivery, and post- Delivery Type Details: [facility]
[2021-01-30] MEDS ORDERED: HYDROCORTISONE ACETATE 25 MG SUPP PR PRN (21:02)
[2021-01-30] MEDS ORDERED: SUPERCREAM 0.870% 15 GM JAR EXT PRN (21:02)
[2021-01-30] MEDS ORDERED: DIPHTHERIA/TETANUS/PERTUSSIS 0.5 ML SYR/VIAL IM ONE (21:02)
[2021-01-30] MEDS ORDERED: BENZOCAINE 20% AER SPR 82.5 GM CAN EXT PRN (21:02)
[2021-01-30] MEDS ORDERED: ACETAMINOPHEN 325 MG TAB PO PRN (21:02)
[2021-01-30] MEDS ORDERED: bisacodyL 10 MG SUPP PR PRN (21:02)
--- NOTE | 2021-01-30 21:52 | Anesthesia Procedure Note ---
Date of Service January 30, 2021 Anesthesia Post Epidural Note Vital Signs Vital Signs: Temp Pulse Resp BP Pulse Ox 36.7 C 83 18 106/59 L 92 01/30/21 19:06 01/30/21 21:40 01/30/21 21:25 01/30/21 21:40 01/30/21 20:30 Notes Mental Status: alert / awake / arousable and participated in evaluation Nausea / Vomiting: adequately controlled Pain: adequately controlled Airway Patency, RR, SpO2: stable & adequate BP & HR: stable & adequate Hydration State: stable & adequate Neuraxial Anesthesia: was administered and sensory block is resolving Anesthetic Complications: no major complications apparent and Pt Satisfied with anesthetic care Epidural: Removed without complications and With tip intact
[2021-01-30] MEDS: DOCUSATE SODIUM 100 MG CAP PO SCH (22:29)
[2021-01-31] MEDS: IBUPROFEN 600 MG TAB PO PRN ×2 (04:33→19:57)
--- NOTE | 2021-01-31 06:06 | Obstetrical Progress Note ---
Date of Service <Axel Lawrence MD - Last Filed: 01/31/21 07:03> January 31, 2021 Assessment & Plan <Axel Lawrence MD - Last Filed: 01/31/21 07:03> (1) Encounter for care and examination after delivery: Pt. stable, recovering well -continue regular diet, encourage ambulation -Rh+, RI, GBS- -labs pending -anticipate d/c tomorrow (2) : (3) Supervision of normal intrauterine in multigravida: <Lubna Trevino MD - Last Filed: 01/31/21 07:17> (1) Encounter for care and examination after delivery: (2) : (3) Supervision of normal intrauterine in multigravida: Subjective <Axel Lawrence MD - Last Filed: 01/31/21 07:03> 30y/o female who is now PPD #1 following spontaneous vaginal delivery. Reports feeling well overall this morning. 0/10 pain well managed on analgesics. Voiding +. Tolerating meals well and able to ambulate some. + passing gas but no bowel movements. Some lochia with improvement this morning. . Review of Systems Denies fever, chills, sweats Denies shortness of breath, difficulty breathing, chest pain, palpitations, chest pressure. Denies breast pain. Denies dysuria. Denies headache or changes in vision Physical Exam <Axel Lawrence MD - Last Filed: 01/31/21 07:03> General: Alert, oriented. No acute distress. Cardiac: Regular rate and rhythm, no murmurs/rubs/gallops. Respiratory: Clear to auscultation bilaterally a/p, no wheezes/rales/rhonchi. No increased work of breathing. Symmetrical chest rise. No respiratory distress. Abdomen: Soft, nontender, nondistended. Bowel sounds present. Uterus: Uterine fundus firm, palpable 2 cm below umbilicus. Lower Extremities: No lower extremity edema or swelling. No deep calf pain. Krish's negative bilaterally.. Results & Data ([facility]) <Axel Lawrence MD - Last Filed: 01/31/21 07:03> Vital Signs (Past 12 Hours) Vital Signs Temp Pulse Pulse Resp BP BP Pulse Ox 07/21/21 04:35 36.7 C 71 16 103/70 01/30/21 23:25 37.5 C 80 16 105/67 01/30/21 22:26 108 H 109/69 01/30/21 22:25 37.0 C 18 01/30/21 22:11 72 105/63 01/30/21 21:56 88 108/70 01/30/21 21:55 18 01/30/21 21:40 83 106/59 L 01/30/21 21:25 87 18 113/72 01/30/21 21:10 79 18 110/68 01/30/21 20:56 76 110/67 01/30/21 20:55 18 01/30/21 20:41 83 112/52 L 01/30/21 20:40 18 01/30/21 20:30 100 H 92 01/30/21 20:26 85 98/52 L 01/30/21 20:25 86 20 99 01/30/21 20:21 93 H 110/66 01/30/21 20:20 95 H 99 01/30/21 20:15 93 H 98 01/30/21 20:10 95 H 95 01/30/21 20:05 80 97 01/30/21 20:00 162 H 93 01/30/21 19:55 95 H 90 01/30/21 19:50 115 H 97 01/30/21 19:49 150 H 92 01/30/21 19:45 179 H 94 01/30/21 19:44 83 88 L 01/30/21 19:40 88 97 01/30/21 19:39 114 H 92 01/30/21 19:35 84 97 01/30/21 19:33 100 H 91 01/30/21 19:30 112 H 98 01/30/21 19:28 101 H 86 L 01/30/21 19:25 121 H 98 01/30/21 19:21 100 H 124/61 84 L 01/30/21 19:20 102 H 98 01/30/21 19:15 90 100 01/30/21 19:10 81 100 01/30/21 19:06 36.7 C 100 H 22 148/74 H 01/30/21 19:05 94 H 98 01/30/21 19:01 114 H 79 L 01/30/21 19:00 116 H 18 100 01/30/21 18:55 138 H 99 01/30/21 18:53 82 110/53 L 01/30/21 18:50 86 100 01/30/21 18:45 65 100 01/30/21 18:42 71 87 L 01/30/21 18:40 64 99 01/30/21 18:37 69 122/76 01/30/21 18:36 81 91 01/30/21 18:35 71 99 01/30/21 18:30 80 18 100 01/30/21 18:25 71 99 01/30/21 18:21 73 110/64 01/30/21 18:20 74 100 01/30/21 18:15 74 99 01/30/21 18:10 73 100 01/30/21 18:06 70 105/66 01/30/21 18:05 75 100 <Lubna Trevino MD - Last Filed: 01/31/21 07:17> Co-Signing Physician Notes Resident Physician Supervision Note: I was present with Dr. Gonzalez during the history and exam. I discussed the case with the resident and agree with the findings and plan as documented in the note. Any exceptions or clarifications are listed here: PP1 s/p , meeting pp milestones. VSS, exam benign and wnl. Continue routine pp care Documented By: Lubna Trevino MD Resident Activity Tracking <Axel Lawrence MD - Last Filed: 01/31/21 07:03> Resident Involvement: Resident Care Provided Care Provided: OB Delivery
[2021-01-31 06:40] LABS: Hemoglobin 10.2 g/dL (12.0-16.0); Mean Corpuscular Hemoglobin 30.4 pg (25-34); Mean Corpuscular Volume 89.6 fL (80-100); Mean Platelet Volume 11.2 fL (7.4-10.4); Platelet Count 254 K/uL (130-400); RDW Coefficient of Variation 12.9 % (11.5-14.5); RDW Standard Deviation 41.7 fL (36.4-46.3); Red Blood Count 3.35 M/uL (4.2-5.4); White Blood Count 19.59 K/uL (4.8-10.8)
[2021-01-31] MEDS: DOCUSATE SODIUM 100 MG CAP PO SCH ×2 (08:53→19:57)
[2021-01-31] MEDS: FERROUS SULFATE 325 MG TAB PO SCH (08:53)
[2021-01-31] MEDS: PRENATAL VITAMIN 1 TAB PO SCH (08:53)
[2021-01-31] MEDS ORDERED: bisacodyL 5 MG TABEC PO SCH (20:00)
--- NOTE | 2021-02-01 06:48 | Obstetrical Progress Note ---
Date of Service <Axel Lawrence MD - Last Filed: 02/01/21 07:23> February 01, 2021 Assessment & Plan <Axel Lawrence MD - Last Filed: 02/01/21 07:23> (1) Encounter for care and examination after delivery: Pt. stable, continuing to recover well -Rh+, RI, GBS- -d/c today -6 wk f/u outpatient (2) : (3) Supervision of normal intrauterine in multigravida: <Kiera Hawk MD, FACOG - Last Filed: 02/01/21 07:37> (1) Encounter for care and examination after delivery: (2) : (3) Supervision of normal intrauterine in multigravida: Subjective <Axel Lawrence MD - Last Filed: 02/01/21 07:23> 30 y/o female who is now PPD #2 following spontaneous vaginal delivery at 39.6 weeks. Resting comfortably this morning. 0/10 pain well managed on analgesics. Voiding +. Tolerating meals well and able to ambulate some. + passing gas but denies bowel movements. Some persistent lochia with some improvement this morning. . Review of Systems Denies fever, chills, sweats Denies shortness of breath, difficulty breathing, chest pain, palpitations, chest pressure. Denies breast pain. Denies dysuria. Denies headache or changes in vision Review of Systems All systems reviewed & are unremarkable except as noted in HPI & below Physical Exam <Axel Lawrence MD - Last Filed: 02/01/21 07:23> General: Alert, oriented. No acute distress. Cardiac: Regular rate and rhythm, no murmurs/rubs/gallops. Respiratory: Clear to auscultation bilaterally a/p, no wheezes/rales/rhonchi. No increased work of breathing. Symmetrical chest rise. No respiratory distress. Abdomen: Soft, nontender, nondistended. Bowel sounds present. Uterus: Uterine fundus firm, palpable 2 cm below umbilicus. Lower Extremities: No lower extremity edema or swelling. No deep calf pain. Krish's negative bilaterally.. Constitutional WD/WN, vitals as above Results & Data ([facility]) <Axel Lawrence MD - Last Filed: 02/01/21 07:23> Vital Signs (Past 12 Hours) Vital Signs Temp Pulse Resp BP Pulse Ox 01/31/21 23:10 36.5 C 70 16 109/73 97 01/31/21 19:50 36.7 C 94 H 16 104/70 96 <Kiera Hawk MD, FACOG - Last Filed: 02/01/21 07:37> Co-Signing Physician Notes Resident Physician Supervision Note: I interviewed and examined the patient. Discussed with Dr. Dr. Lawrence and agree with findings and plan as documented in the note. Any exceptions or cla rifications are listed here: Doing well. Plan d/c. Instructions given. Documented By: Kiera Hawk MD, FACOG Resident Activity Tracking <Axel Lawrence MD - Last Filed: 02/01/21 07:23> Resident Involvement: Resident Care Provided Care Provided: OB Delivery
[2021-02-01] MEDS: PRENATAL VITAMIN 1 TAB PO SCH (08:23)
[2021-02-01] MEDS: DOCUSATE SODIUM 100 MG CAP PO SCH (08:23)
[2021-02-01] MEDS: FERROUS SULFATE 325 MG TAB PO SCH (08:23)
== END 2021-02-01 11:20 | disposition home or self-care (01) | DRG 807 ==
LOC: OPB 13:18 → 4S1 13:20 → 4S2 23:18